=== PATIENT | male | born 1955 | race Caucasian/White ===

== ENCOUNTER 2017-01-01 13:33 | Inpatient (IN) | payer BC ==
[2017-01-01] MEDS ORDERED: Sodium Chloride 0.9% 10 ML Syringe FLUSH PRN (13:51)
[2017-01-01] MEDS ORDERED: Albuterol/Ipratropium 3.0-0.5 MG/3 ML Neb Soln NEB PRN (13:54)
[2017-01-01] MEDS: Albuterol/Ipratropium 3.0-0.5 MG/3 ML Neb Soln NEB SCH ×2 (14:32→18:49)
[2017-01-01] MEDS: Levofloxacin/Dextrose 5%-Water 750 MG in Premix Bag 1 BAG IV SCH (14:44)
[2017-01-01] MEDS: Sodium Chloride 0.9% 1,000 ML IV SCH (14:46)
[2017-01-01 14:57] LABS: CHLORIDE,CL 97 mmol/L (98-107); SODIUM,NA 133 mmol/L (136-145)
[2017-01-01] MEDS ORDERED: Enoxaparin 40 MG/0.4 ML Syringe SUBCUT SCH (16:45)
[2017-01-01] MEDS: BUPROPION 150 MG PO SCH (19:46)
[2017-01-01] MEDS: PRAVASTATIN 20 MG PO SCH (19:47)
[2017-01-01] MEDS: TREPROSTINIL IH SCH (19:47)
[2017-01-01] MEDS ORDERED: Pravastatin 20 MG Tab PO SCH (20:00)
[2017-01-01] MEDS: Enoxaparin 40 MG/0.4 ML Syringe SUBCUT SCH (20:50)
[2017-01-02] MEDS: Albuterol/Ipratropium 3.0-0.5 MG/3 ML Neb Soln NEB SCH ×4 (00:37→18:45)
[2017-01-02] MEDS: Sodium Chloride 0.9% 1,000 ML IV SCH (02:13)
[2017-01-02] MEDS: CYANOCOBALAMIN 1000 MCG SL SCH (07:40)
[2017-01-02] MEDS: AMLODIPINE 5 MG PO SCH (07:40)
[2017-01-02] MEDS: TREPROSTINIL IH SCH ×4 (07:40→19:37)
[2017-01-02] MEDS: LOSARTAN 100 MG PO SCH (07:41)
[2017-01-02] MEDS: CARVEDILOL 80 MG PO SCH (07:41)
[2017-01-02] MEDS: ASPIRIN 81 MG PO SCH (07:41)
[2017-01-02] MEDS: CARVEDILOL 20 MG PO SCH (07:41)
[2017-01-02] MEDS: MACITENTAN 10 MG PO SCH (07:42)
[2017-01-02] MEDS: HYDROXYCHLOROQUINE 200 MG PO SCH (07:42)
[2017-01-02] MEDS: MODAFINIL 200 MG PO SCH (07:42)
[2017-01-02] MEDS: BUPROPION 150 MG PO SCH ×2 (07:43→19:37)
[2017-01-02 08:42] LABS: CHLORIDE,CL 98 mmol/L (98-107); SODIUM,NA 131 mmol/L (136-145)
[2017-01-02] MEDS: Sodium Chloride 0.9% 10 ML Syringe FLUSH PRN ×2 (08:53→19:38)
[2017-01-02] MEDS: Acetaminophen 500 MG Tab PO PRN (08:53)
[2017-01-02] MEDS: methylPREDNISolone Sodium Succinate 40 MG/1 ML SDV IVPUSH SCH ×2 (08:53→19:36)
[2017-01-02] MEDS: guaiFENesin 600 MG Tab.ER PO SCH ×2 (08:53→19:36)
--- NOTE | 2017-01-02 08:58 | PN ---
Progress Note for YADIRA SCHAFFER Date: 01/02/2017 Room #: VM.204 SUBJECTIVE: This is a 61-year-old, hospital day #2 for community acquired pneumonia, failing outpatient antibiotics. The patient has been more hypoxic. He is requiring up to 6 L to keep his sats above 90%. While he was sleeping, he was in the mid 80s. He requested a mask, as he is more of a mouth breather. His home CPAP unit apparently had not been working the evening before at home. His had taken it over to [facility]. They did not have it on hand last night, but will try it tonight. He says he is coughing worse today. He is coughing up some sputum. Sample was sent. His influenza testing was negative. He is having fevers. He spiked 101.3 just this morning. Otherwise, he denies that he feels overly short of breath. OBJECTIVE: Vital Signs: Otherwise temperature 101.3 that has been his T-max over 24 hours, pulse 93, blood pressure 115/64, respiratory rate 20, O2 of 96% on 6 L. General: He is in no acute distress. His face does appear red. Heart: Regular rate and rhythm without murmur. Lungs: Sounds show inspiratory and expiratory wheezing throughout, which is worse since yesterday. He has increased respiratory effort as compared to admission. He otherwise has no edema in his extremities. He is alert and oriented x3. LABORATORY DATA: Lab work is still pending for kidney function, but white count is 6.2, hemoglobin 11.1, platelets 137. ASSESSMENT: 1. Community acquired pneumonia, failing outpatient Zithromax, now on IV Levaquin. 2. Acute on chronic hypoxic respiratory failure secondary to pneumonia, right basilar. 3. Underlying chronic obstructive pulmonary disease with exacerbation due to pneumonia. We will start IV steroids today. He is on scheduled and p.r.n. nebulizers. His Spiriva is on hold due to DuoNeb. 4. Essential hypertension. Blood pressures are controlled. 5. History of heart failure, stable without exacerbation. PLAN: At this point, the patient will continue acute cares. We will start him on IV steroids. I am going to repeat a chest x-ray today. We will continue oxygen. We will try to get his home CPAP working tonight. If not, we will use a hospital unit. We will continue him on continuous pulse oximetry. I did discuss with him that if his condition were to worsen he would be transferred to [place]. Continue IV Levaquin for today. We will give him some Tylenol for fevers. He is on Lovenox for DVT prophylaxis. MKA: 01/02/2017 08:41:31 MODL: 01/02/2017 08:53:57 /[id number]
[2017-01-02] MEDS: Levofloxacin/Dextrose 5%-Water 750 MG in Premix Bag 1 BAG IV SCH (13:17)
[2017-01-02] MEDS: PRAVASTATIN 20 MG PO SCH (19:37)
[2017-01-02] MEDS: Enoxaparin 40 MG/0.4 ML Syringe SUBCUT SCH (20:24)
[2017-01-03] MEDS: Albuterol/Ipratropium 3.0-0.5 MG/3 ML Neb Soln NEB SCH ×4 (01:22→18:39)
[2017-01-03 07:36] LABS: CHLORIDE,CL 99 mmol/L (98-107); SODIUM,NA 133 mmol/L (136-145)
[2017-01-03] MEDS: TREPROSTINIL IH SCH ×4 (07:56→19:20)
[2017-01-03] MEDS: Sodium Chloride 0.9% 10 ML Syringe FLUSH PRN ×3 (07:57→19:21)
[2017-01-03] MEDS: BUPROPION 150 MG PO SCH ×2 (07:57→19:20)
[2017-01-03] MEDS: methylPREDNISolone Sodium Succinate 40 MG/1 ML SDV IVPUSH SCH ×2 (07:57→19:20)
[2017-01-03] MEDS: CYANOCOBALAMIN 1000 MCG SL SCH (07:57)
[2017-01-03] MEDS: guaiFENesin 600 MG Tab.ER PO SCH ×2 (07:57→19:20)
[2017-01-03] MEDS: MODAFINIL 200 MG PO SCH (07:58)
[2017-01-03] MEDS: HYDROXYCHLOROQUINE 200 MG PO SCH (07:58)
[2017-01-03] MEDS: AMLODIPINE 5 MG PO SCH (07:59)
[2017-01-03] MEDS: ASPIRIN 81 MG PO SCH (07:59)
[2017-01-03] MEDS: MACITENTAN 10 MG PO SCH (08:00)
[2017-01-03] MEDS: CARVEDILOL 80 MG PO SCH (08:28)
[2017-01-03] MEDS: LOSARTAN 100 MG PO SCH (08:28)
[2017-01-03] MEDS: CARVEDILOL 20 MG PO SCH (12:27)
[2017-01-03] MEDS: Acetaminophen 500 MG Tab PO PRN (13:28)
[2017-01-03] MEDS: Levofloxacin/Dextrose 5%-Water 750 MG in Premix Bag 1 BAG IV SCH (13:29)
[2017-01-03] MEDS: PRAVASTATIN 20 MG PO SCH (19:20)
[2017-01-03] MEDS: Enoxaparin 40 MG/0.4 ML Syringe SUBCUT SCH (20:40)
[2017-01-04] MEDS: Albuterol/Ipratropium 3.0-0.5 MG/3 ML Neb Soln NEB SCH ×4 (01:18→18:26)
--- NOTE | 2017-01-04 01:31 | PN ---
Progress Note for YADIRA SCHAFFER Date: 01/03/2017 Room #: VM.204 SUBJECTIVE: Hospital day #3 on a 61-year-old admitted with acute hypoxic respiratory failure due to community-acquired right basilar pneumonia. Cultures are showing no growth. Sputum cultures are showing respiratory [place]. He spiked a fever yesterday morning, but has been afebrile since. His appetite has been poor. He has not been drinking much. His blood pressures have been running lower 84/54, but he has been asymptomatic. Blood pressure pills were held this morning. He is not having any chest pain. His oxygen was increased up to 6 L yesterday, even to 6.5 L, but is now back down to 5. He was able to sleep and use his CPAP last night. He has no abdominal pain. He has not had any bowel movements. He has been off IV fluids since yesterday. OBJECTIVE: Vital Signs: His temperature is 98.1, pulse 83, blood pressure 84/54, respiratory rate 20, O2 of 92 on 5 L. General: He was in no acute distress. Heart: Regular rate and rhythm. Lungs: Sounds were decreased throughout, but does have expiratory wheezing noted. He has rhonchi noted in the right base. Abdomen: Positive bowel sounds. Soft and nontender. Extremities: Warm and dry. No edema. Heart: Regular rate and rhythm. Mental Status: Alert and orientated x3. Psych: He is not depressed or anxious. LABORATORY DATA: Lab work reviewed today. His white count continues to be normal at 6.4. He does have 87% neutrophils, hemoglobin 11.5, platelets 143. Sodium improved up to 133, potassium 4.3, chloride 99, bicarb 26, BUN 18, creatinine 0.9, glucose 142, calcium 8. ASSESSMENT AND PLAN: 1. Acute hypoxic respiratory failure secondary to community-acquired pneumonia. 2. Community-acquired pneumonia, failing outpatient Zithromax. Cultures have been negative. Right basilar pneumonia. 3. Chronic obstructive pulmonary disease with exacerbation due to pneumonia. 4. Essential hypertension with actually hypotension probably due to pneumonia and poor intake. 5. History of heart failure with now improved ejection fraction on medical regimen. He is doing well without any exacerbation. We will hold his Coreg and losartan and Norvasc today due to low blood pressure. If his blood pressure comes up over 90, we will give him the 20 mg dose of Coreg. 6. Pulmonary hypertension. He is on his tadalafil and Opsumit. PLAN: The patient will continue acute cares with IV Levaquin and IV steroids 40 q.12h. We will do q.i.d. Accu-Cheks today. He did have some hyperglycemia from steroids last night up to 186. We will institute insulin if he is over 200. He will continue on Lovenox for DVT prophylaxis. We will continue to watch his blood pressure closely, encourage oral intake. Anticipate he may be discharged home tomorrow with nebulizers and oxygen, so Respiratory Therapy will have to be involved for his discharge. SHIVA: 01/03/2017 08:58:16 MODL: 01/04/2017 01:24:49 /[id number]
[2017-01-04] MEDS: guaiFENesin 600 MG Tab.ER PO SCH ×2 (07:40→19:42)
[2017-01-04] MEDS: methylPREDNISolone Sodium Succinate 40 MG/1 ML SDV IVPUSH SCH ×2 (07:40→19:41)
[2017-01-04] MEDS: CYANOCOBALAMIN 1000 MCG SL SCH (07:41)
[2017-01-04] MEDS: MODAFINIL 200 MG PO SCH (07:42)
[2017-01-04] MEDS: ASPIRIN 81 MG PO SCH (07:42)
[2017-01-04] MEDS: HYDROXYCHLOROQUINE 200 MG PO SCH (07:42)
[2017-01-04] MEDS: AMLODIPINE 5 MG PO SCH (07:43)
[2017-01-04] MEDS: MACITENTAN 10 MG PO SCH (07:43)
[2017-01-04] MEDS: CARVEDILOL 20 MG PO SCH (07:44)
[2017-01-04] MEDS: LOSARTAN 100 MG PO SCH (07:44)
[2017-01-04] MEDS: CARVEDILOL 80 MG PO SCH (07:44)
[2017-01-04] MEDS: BUPROPION 150 MG PO SCH ×2 (07:45→19:42)
[2017-01-04] MEDS: TREPROSTINIL IH SCH ×4 (07:45→21:19)
--- NOTE | 2017-01-04 10:01 | HP ---
CHIEF COMPLAINT: Cough, shortness of breath and fever. HISTORY OF PRESENT ILLNESS: This is a 61-year-old male with known COPD and previous smoking, who was 2 days ago with mild fever and new cough. He was started on Zithromax, but his symptoms worsened, yesterday was more fatigued, he ended up going home from work at 1600. He has had shaking chills and a temp up to 101. He is coughing up clear to yellow sputum, but he has not felt short of breath. Unfortunately, his oxygen quit during the night and his O2 is 82% in the clinic on room air. He otherwise has a known history of pulmonary hypertension. He is on Opsumit and Tyvaso. He does not had any sore throat or body aches today, but he has lost 3 pounds over the last couple days. ALLERGIES: His allergy list includes none. MEDICATIONS: His medication list currently includes Zithromax 250 daily, losartan 100 mg daily, Provigil 200 mg daily, Spiriva daily, Plaquenil 200 mg daily, Coreg 100 mg daily, Norvasc 2.5 mg daily, Pravachol 20 mg daily at bedtime, Wellbutrin 150 b.i.d., Kenalog cream as needed, Tyvaso 0.6 mg/mL 4 times a day, Opsumit 10 mg daily, vitamin B12 daily, Proventil inhaler as needed, aspirin 81 mg daily. PAST MEDICAL HISTORY: 1. Squamous cell carcinoma of the right lung, diagnosed back in 2011, found after pneumonia, status post radiation in remission with good CT earlier in December. 2. Dilated cardiomyopathy, resolved. 3. Essential hypertension. 4. Chronic congestive heart failure; at 1 point systolic, but now EF resolved to 65%. Stable without exacerbations. 5. Peripheral vascular disease. 6. Primary pulmonary hypertension with multiple factors. 7. COPD. 8. Sleep related hypoventilation. 9. Hypertriglyceridemia. 10.Former smoker. 11.ADD. 12.History of alcohol abuse. 13.History of hyponatremia. PAST SURGICAL HISTORY: 1. Tonsillectomy. 2. Right knee surgery. 3. Left clavicle surgery. 4. Endarterectomy on the left common femoral artery. 5. Bronchoscopy. SOCIAL HISTORY: He is . He owns [employer]. He lives at home with his . He used to smoke, but was able to quit. He used to drink alcohol, but no longer does. FAMILY HISTORY: Mother . His father has had some issues with his heart as well as blood pressure and alcohol. His brother also had alcohol abuse. REVIEW OF SYSTEMS: General: He has had a poor appetite. He has had fever and chills. HEENT: No trouble swallowing. Cardiac: No chest pain. Respiratory: As stated in the HPI. Abdominal: No nausea vomiting, diarrhea. Otherwise all systems reviewed and found to be negative unless otherwise stated. PHYSICAL EXAMINATION: Vital Signs: On admission to the hospital weight 83.9 kg, temp 100.2, pulse 112, blood pressure 108/56, respiratory rate 22, O2 80 on room air and 92 on 4 L. General: He is in no acute distress. Heart: Regular rate and rhythm. S1, S2 without murmur. Lungs: Sounds are decreased to auscultation throughout. There is expiratory wheezing noted especially in the bases with rhonchi, worse on the right when compared to the left. Extremities: Warm and dry. No edema. Mental Status: Alert and orientated x3. Psych: He is not overly depressed or anxious. He is cooperative and agreeable. LABORATORY DATA: Lab work shows a white count of 7.2, hemoglobin 12.5, platelets 149. Sodium 133, potassium 4.1, chloride 97, bicarb 26, BUN 25, creatinine 1.2. Calcium 8.2, glucose 86, ALT 12, AST 19, albumin 3.3. Chest x- ray was done and does show him to have a probable right basilar pneumonia, superimposed on chronic scarring with underlying emphysema changes. ASSESSMENT: 1. Acute on chronic hypoxic respiratory failure related to community acquired pneumonia; however, failing outpatient antibiotics. 2. Community-acquired pneumonia, right basilar. 3. History of pulmonary hypertension. 4. History of heart failure, stable without exacerbation. 5. Essential hypertension. 6. History of smoking. 7. History of lung cancer, in remission. 8. Chronic obstructive pulmonary disease with probable exacerbation due to pneumonia. PLAN: At this point, the patient is admitted under acute cares for IV antibiotics Levaquin, IV fluids, oxygen and scheduled and p.r.n. nebulizers. We will continue his home medications but holding parameters in place for blood pressure pills, especially Norvasc for blood pressure is under 100. Hopefully, he will be able to be discharged in the next 24-48 hours. He at 1st did not even want to stay but eventually we convinced him otherwise as his oxygen tank was not working at home. We will put him on Lovenox for DVT prophylaxis and repeat lab work in the morning. RUBENSA: 01/01/2017 16:45:36 MODL: 01/01/2017 21:48:07 /[id number]
--- NOTE | 2017-01-04 10:01 | PN ---
Progress Note for YADIRA SCHAFFER Date: 01/04/2017 Room #: VM.204 SUBJECTIVE: This is hospital day #4 on a 61-year-old admitted for a right basilar pneumonia, community acquired. Cultures have been negative. He has been afebrile now for 48 hours. He says his cough is there but he is not bringing anything up. He does not feel overly short of breath. He was weaned down to 2 L. This morning, it was 91%, but after doing some coughing and blowing his nose and taking off the oxygen mask, his sats were down into the mid 80s, around 83 to 84. He denies any pain any where. He slept poorly last night, getting only about 4 L. His blood pressure did come up. His appetite has improved some. OBJECTIVE: Vital Signs: His temperature is 98.3, pulse 75, blood pressure 120/63, respiratory rate 22, O2 of 84 on 2 L. General: He is in no acute distress. Heart: Regular rate and rhythm. S1, S2 without murmur. Lungs: Lung sounds are decreased with both bases and expiratory wheezing. He has rhonchi over both the right and left lower lung. Extremities: Warm and dry. No edema. Mental Status: Alert and orientated x3. LABORATORY DATA: Lab work shows his blood sugars have all been below 150 yesterday. He has been on IV Solu-Medrol. ASSESSMENT: 1. Community-acquired pneumonia. Culture negative. 2. Acute hypoxic respiratory failure secondary to community-acquired pneumonia and chronic obstructive pulmonary disease exacerbation. 3. Chronic obstructive pulmonary disease with exacerbation. 4. Remote history of lung cancer, in remission. 5. Pulmonary hypertension. 6. Essential hypertension with hypotension yesterday, so blood pressure medications were held. 7. History of heart failure, now with improved ejection fraction of 65%. He has no signs of heart failure on exam. Continue to monitor. PLAN: At this point, the patient will continue acute cares. I am going to switch IV Levaquin over to oral. With his COPD, I will plan to treat beyond the 5-day pneumonia course with the 500 mg dose, he had been on 750 IV. I will continue IV steroids q.12 hours. He will go home on prednisone probably 60 mg daily with a taper. I will also get him home on nebulizer treatments which is new to him and oxygen. We will have RT do a home O2 assessment today. We will repeat a chest x-ray and basically decide if he is stable for discharge later this afternoon or due to hypoxia, he should stay another night. We will get him up and working with therapies as well and we will continue Lovenox for DVT prophylaxis. MKA: 01/04/2017 08:54:23 MODL: 01/04/2017 09:14:37 /[id number]
[2017-01-04] MEDS: Levofloxacin 500 MG Tab PO SCH (10:45)
[2017-01-04] MEDS: Sodium Chloride 0.9% 10 ML Syringe FLUSH PRN (19:41)
[2017-01-04] MEDS: PRAVASTATIN 20 MG PO SCH (19:43)
[2017-01-04] MEDS: Enoxaparin 40 MG/0.4 ML Syringe SUBCUT SCH (21:18)
[2017-01-05] MEDS: Albuterol/Ipratropium 3.0-0.5 MG/3 ML Neb Soln NEB SCH ×2 (01:41→07:07)
[2017-01-05] MEDS: guaiFENesin 600 MG Tab.ER PO SCH (07:34)
[2017-01-05] MEDS: methylPREDNISolone Sodium Succinate 40 MG/1 ML SDV IVPUSH SCH (07:34)
[2017-01-05] MEDS: TREPROSTINIL IH SCH ×2 (07:34→11:08)
[2017-01-05] MEDS: AMLODIPINE 5 MG PO SCH (07:35)
[2017-01-05] MEDS: BUPROPION 150 MG PO SCH (07:35)
[2017-01-05] MEDS: CARVEDILOL 80 MG PO SCH (07:36)
[2017-01-05] MEDS: CARVEDILOL 20 MG PO SCH (07:36)
[2017-01-05] MEDS: MODAFINIL 200 MG PO SCH (07:36)
[2017-01-05] MEDS: LOSARTAN 100 MG PO SCH (07:36)
[2017-01-05] MEDS: CYANOCOBALAMIN 1000 MCG SL SCH (07:37)
[2017-01-05] MEDS: ASPIRIN 81 MG PO SCH (07:37)
[2017-01-05] MEDS: HYDROXYCHLOROQUINE 200 MG PO SCH (07:37)
[2017-01-05] MEDS: MACITENTAN 10 MG PO SCH (07:38)
[2017-01-05 09:57] VITALS: BP 102/62
[2017-01-05] MEDS: Levofloxacin 500 MG Tab PO SCH (11:08)
--- NOTE | 2017-01-06 05:36 | DISCH ---
PRIMARY DISCHARGE DIAGNOSES: 1. Community-acquired pneumonia right basilar, cultures negative, failing outpatient antibiotics. 2. Acute on chronic hypoxic respiratory failure secondary to community- acquired pneumonia and chronic obstructive pulmonary disease exacerbation. 3. Chronic obstructive pulmonary disease with chronic bronchitis and exacerbation due to pneumonia. 4. Remote history of lung cancer, in remission. 5. Pulmonary hypertension, on nocturnal oxygen and CPAP. 6. Essential hypertension with some hypotension during his stay, resolved by discharge. 7. History of systolic heart failure recovered, now ejection fraction 65% without any heart failure during his stay. SECONDARY DISCHARGE DIAGNOSES: 1. Hypertriglyceridemia. 2. Hyponatremia, sodium 133. 3. History of alcohol abuse. 4. History of smoking, quit in the past. 5. History of radiation for lung cancer with radiation pneumonitis. 6. Obstructive sleep apnea and attention deficit disorder. REASON FOR ADMISSION: On the date of admission, this 61-year-old male who had been in the clinic 2 days previously with cough and low-grade fevers came back with worsening temps up to 101, worsening hypoxia, O2 sats on room air down to 82%. He was also having some trouble with his home oxygen and CPAP. He initially did not want to stay in the hospital but eventually agreed. He was placed on IV Levaquin, scheduled nebulizers. He initially was not wheezing but by the next morning, he had wheezing, so we started on Solu-Medrol 40 mg twice daily. He continued to be quite hypoxic, so chest x-rays were repeated with slight worsening on Wednesday the , but repeat on Wednesday the showed stable x-ray. He was eventually weaned down from oxygen. At one point, he was requiring up to 5.5 L, but was down to 3 L on discharge to maintain O2 sats around 90%. He was doing quite a bit of coughing, but his sputum culture did not grow anything. His blood cultures were negative. He was not producing much sputum, but on the day of discharge, just felt like he had sort of a tickle in his throat and he was using a flutter valve and incentive spirometry. He could get this incentive spirometry all the way up to the top. He was continued on his pulmonary hypertension treatments during his stay as well, which would include his nebulized Tyvaso; however, I did recommend probably using a separate nebulizer at home for albuterol. He was also continued on his Opsumit. He was given DuoNeb, so Spiriva was held during his stay. He was hypotensive with blood pressures down into the 90s one morning, so his Coreg and Norvasc and losartan were held, but he was able to be restarted on them without issues. He was eating better and doing better at the time of discharge. DISCHARGE PHYSICAL EXAMINATION: Vital Signs: Temp 98.7, pulse 77, blood pressure 129/71, respiratory rate 18, and O2 of 94% on 3 L. General: He is in no acute distress. Heart: Regular rate and rhythm. S1 and S2 without murmur. Lungs: Sounds showed improved air entry throughout with just end-expiratory wheezing in both bases. No crackles or rhonchi appreciated. Extremities: Warm and dry. No edema. Mental Status: He is alert and orientated x3. LABORATORY DATA: Lab work was stable with white count never being elevated, but he did have 87% neutrophils, hemoglobin was 11.5, platelets were 143, they were stable during this stay and he was maintained on Lovenox for DVT prophylaxis. Sodium check was 133. Kidney function was normal. He did have some higher blood sugars up to 186 due to steroids, but otherwise they had been in the 100- 149 range, so Accu-Cheks were discontinued. DISCHARGE PLANS AND INSTRUCTIONS: He will follow up with Dr. Santiago in the clinic on 01/20. He will also follow up with Dr. Jaleesa Brennan in the clinic on 01/13. He will continue on oxygen 3 L at rest and 4 L with activity. Until then, he will continue on the same oxygen and CPAP at night. He will complete 5 more days of Levaquin 500 mg daily. He will complete prednisone taper 60 mg for 3 days, 40 for 3 days, 20 for 3 days, and 10 for 3 days. Hopefully, we can wean him off oxygen as an outpatient or just to be used with activity. He will be on scheduled nebulizers, albuterol 4 times a day and as needed to wean down when he does not need those also. Otherwise, the patient is not due for any followup lab work at his next office visit unless he is having other symptoms. We will do lab work again at his followup appointment in May. Greater than 30 minutes spent on this discharge process. MKA: 01/05/2017 09:23:13 MODL: 01/06/2017 05:29:55 /[id number]
== END 2017-01-05 12:10 | disposition home or self-care (01) | DRG 139 ==
LOC: VM.MS 13:35
PROVIDERS: ADMIT Internal Medicine; ATTEND Internal Medicine
DX: J18.9 Pneumonia, unspecified organism (principal); J96.21 Acute and chronic respiratory failure with hypoxia; J44.0 Chronic obstructive pulmonary disease with (acute) lower respiratory infection; J44.1 Chronic obstructive pulmonary disease with (acute) exacerbation; Z87.01 Personal history of pneumonia (recurrent); Z87.891 Personal history of nicotine dependence; I11.0 Hypertensive heart disease with heart failure; I50.20 Unspecified systolic (congestive) heart failure; I73.9 Peripheral vascular disease, unspecified; I27.2 Other secondary pulmonary hypertension; E78.1 Pure hyperglyceridemia; F10.21 Alcohol dependence, in remission; Z85.118 Personal history of other malignant neoplasm of bronchus and lung; Z79.82 Long term (current) use of aspirin; Z79.899 Other long term (current) drug therapy
CPT/HCPCS: 36415; 71020; 80048; 80053; 82962; 85025; 87040; 87070; 87205; 87804; 94640; 94640-76; 94760; 97161-GP; A9270-GY; J1650; J1956; J2920; J7030; J7050

== ENCOUNTER 2017-06-10 08:37 | Day surgery (SDC) | payer BC ==
[~2017-06-10 08:37] MED LIST: Lactated Ringers 1,000 ML IV SCH
[2017-06-10] MEDS ORDERED: fentaNYL 100 MCG/2 ML SDV ONE (10:53)
[2017-06-10] MEDS ORDERED: Propofol 200 MG/20 ML SDV ONE ×4 (10:53→12:02)
[2017-06-10] MEDS ORDERED: ePHEDrine 50 MG/ML SDV ONE (11:29)
[2017-06-10] MEDS ORDERED: Lactated Ringers 2,000 ML ONE (12:50)
[2017-06-10 13:03] VITALS: BP 128/64
--- NOTE | 2017-06-10 19:29 | OR ---
DATE OF SURGERY: 06/10/2017 REFERRING PROVIDER: Mayelin Santiago DO. PRE-OPERATIVE DIAGNOSES: Positive FIT stool card. This is the patient's first colonoscopy. There is no known family history of colon cancer or colon polyps. POST-OPERATIVE DIAGNOSES: 1. Multiple colonic polyps removed. A total of 17 were removed with 4 of these being 1 cm in size or larger. 2. Tortuous colon, making the locations of polyps inconsistent, given the looping and redundant nature of the colon. PROCEDURE: Colonoscopy with polypectomy x17; (15 using hot snare and 2 using cold forceps). SURGEON: Jose Roberto Palomino M.D. ANESTHESIA: Monitored anesthesia care. BOWEL PREP: Good. DESCRIPTION OF OPERATION: Jc is a 62-year-old male who was brought to the endoscopy suite after discussing risks and benefits of the procedure. Informed consent was obtained for conscious sedation and colonoscopy with or without biopsy and/or polypectomy. We also discussed possibility of missed lesions. Pre-procedure exam was unremarkable. IV, oxygen, and monitors were placed. The patient was placed in the left lateral decubitus position. Sedation was administered and a digital rectal exam performed and unremarkable. Colonoscope was passed into the rectum and was slowly advanced all the way to the cecum. There were few polyps removed on the way into the cecum using hot snare. The patient did have a rather tortuous colon and redundant colon making the distance from the anal verge of these polyps inconsistent. Colonoscope was then slowly withdrawn. On withdrawal, the mucosa closely observed in a direct circumferential manner. Cecum was viewed and photographed. The colonoscope was slowly withdrawn and the mucosa was closed observed in a direct circumferential manner. Multiple pedunculated and small sessile polyps were noted diffusely throughout the colon. A total of 17 were removed, 15 using hot snare and 2 using cold forceps. Four of these were 1 cm or larger. This required the scope to be removed multiple times to retrieve the polypoid tissue. Retroflexion was performed. Rectal mucosa was unremarkable. Scope was removed. The patient tolerated the procedure well. The patient was monitored until that baseline status. Discharge instructions were reviewed and the patient was discharged in good condition. COMPLICATIONS: None. TOTAL TIME: 88 minutes. ESTIMATED BLOOD LOSS: 1 mL to 2 mL. RECOMMENDATIONS/FOLLOWUP: We will await results of path report to determine ideal followup interval, but we are likely looking at a 1 year followup given the number of polyps present. I am going to have the patient hold his aspirin for 5 days to limit any chance of bleeding. I would like to kindly thank Mayelin Santiago DO for this referral. DMB: 06/10/2017 12:41:58 MODL: 06/10/2017 15:02:38 /[id number]
== END 2017-06-10 14:20 | disposition home or self-care (01) ==
LOC: VM.SDS 08:37
PROVIDERS: ATTEND Family Medicine
DX: D12.6 Benign neoplasm of colon, unspecified (principal); K63.5 Polyp of colon; I50.32 Chronic diastolic (congestive) heart failure; J44.1 Chronic obstructive pulmonary disease with (acute) exacerbation; I73.9 Peripheral vascular disease, unspecified; I10 Essential (primary) hypertension; G47.33 Obstructive sleep apnea (adult) (pediatric); Z79.899 Other long term (current) drug therapy; Z79.82 Long term (current) use of aspirin; E87.1 Hypo-osmolality and hyponatremia; E78.1 Pure hyperglyceridemia; Z99.81 Dependence on supplemental oxygen
CPT/HCPCS: 45380; 45385; J2704; J3010; J7120